=== PATIENT | female | born 1995 | race Caucasian/White ===

== ENCOUNTER 2025-04-30 22:36 | Emergency (ER) | payer SELFPAY ==
[~2025-04-30] VITALS: Ht 157.5 cm; Wt 76.4 kg
[2025-04-30 22:54] VITALS: BP 127/60; TEMP 37; O2SAT 99
[2025-04-30 22:58] VITALS: PULSE 94; RESP 16; O2SAT 100
[2025-05-01] MEDS: KETOROLAC 15MG/ML VIAL IM ONE (00:37)
[2025-05-01] MEDS ORDERED: LIDO-53 TP (00:49)
[2025-05-01] MEDS ORDERED: NAPR-1176 MT (00:49)
[2025-05-01 04:56] LABS: CLARITY URINE CLEAR (CLEAR); COLOR URINE YELLOW (YELLOW); GLUCOSE URINE NEGATIVE (NEGATIVE); KETONES URINE 1+ (NEGATIVE); LEUKOCYTE ESTERASE URINE NEGATIVE (NEGATIVE); NITRITE URINE NEGATIVE (NEGATIVE); OCCULT BLOOD URINE TRACE (NEGATIVE); PH URINE 5.0 (4.5-8.0); PROTEIN URINE NEGATIVE (NEGATIVE); SPECIFIC GRAVITY URINE 1.029 (1.005-1.030); UROBILINOGEN URINE 0.2 E.U./dL (0.2-1.0)
[2025-05-01 06:39] LABS: SQUAMOUS EPITHELIAL CELL URINE 2+ /lpf (RARE/1+); WBC URINE 0-2 /hpf (0-2)
[2025-05-01 06:40] LABS: BACTERIA URINE TRACE
== END 2025-05-01 01:41 | disposition home or self-care (01) ==
LOC: ER 22:36
DX: S66.911A Strain of unspecified muscle, fascia and tendon at wrist and hand level, right hand, initial encounter (principal); S20.219A Contusion of unspecified front wall of thorax, initial encounter; J45.909 Unspecified asthma, uncomplicated; V89.2XXA Person injured in unspecified motor-vehicle accident, traffic, initial encounter; Y93.89 Activity, other specified; Y92.410 Unspecified street and highway as the place of occurrence of the external cause; Y99.8 Other external cause status
CPT/HCPCS: 99284; 71045; 73110; 81003; 81025; J1885